=== PATIENT | female | born 1985 | race Caucasian/White ===

== ENCOUNTER 2016-09-23 06:27 | Day surgery (SDC) | payer BC ==
[~2016-09-23 06:27] MED LIST: Lactated Ringers 1,000 ML IV SCH; Lidocaine 1%/Sod Bicarbonate in NS 8.4% 1 ML Syringe IV PRN; Sodium Chloride 0.9% 10 ML Syringe FLUSH PRN
[2016-09-23] MEDS ORDERED: Midazolam 1 MG/ML 2 ML SDV ONE (06:46)
[2016-09-23] MEDS ORDERED: Lidocaine 0.5% 50 ML SDV ONE (06:46)
[2016-09-23] MEDS ORDERED: Sodium Bicarbonate 8.4% 50 MEQ/50 ML SDV ONE (06:46)
[2016-09-23] MEDS ORDERED: Propofol 200 MG/20 ML SDV ONE ×2 (06:46→07:52)
[2016-09-23] MEDS ORDERED: Bupivacaine 0.25% 30 ML SDV ONE (06:57)
[2016-09-23] MEDS ORDERED: Lidocaine 1% 30 ML SDV ONE (06:57)
[2016-09-23] MEDS ORDERED: Alfentanil 500 MCG/ML 2ML Amp ONE (07:09)
--- NOTE | 2016-09-23 07:09 | PCM.PREANE ---
Preanesthetic Assessment - Procedure Proposed Procedure: Bilateral Carpel Tunnel Release - Anesthesia/Transfusion/Family Hx Anesthesia History: Prior Anesthesia Without Reaction Family History of Anesthesia Reaction: No - Review of Systems General: No Symptoms Pulmonary: No Symptoms Cardiovascular: No Symptoms Gastrointestinal: No symptoms Neurological: No Symptoms Other: Reports: None - Physical Assessment NPO Status Date: 09/22/16 NPO Status Time: 21:00 O2 Sat by Pulse Oximetry: 97 Respiratory Rate: 17 Vital Signs: Last Vital Signs Temp 37.2 C 09/23/16 06:37 Pulse 86 09/23/16 06:37 Resp 17 09/23/16 06:37 BP 118/77 09/23/16 06:37 Pulse Ox 97 09/23/16 06:37 Height: 1.57 m Weight: 55.883 kg ASA Class: 1 Mental Status: Alert & Oriented x3 Airway Class: Mallampati = 1 Dentition: Reports: Normal Dentition, Marshall(s) Thyro-Mental Finger Breadths: 3 Mouth Opening Finger Breadths: 3 ROM/Head Extension: Full Lungs: Clear to auscultation, Normal respiratory effort Cardiovascular: Regular Rate, Regular Rhythm, No Murmurs - Lab Values: Laboratory Last Values WBC 10.16 K/mm3 (3.98-10.04) H 09/20/16 16:36 RBC 3.87 M/mm3 (3.98-5.22) L 09/20/16 16:36 Hgb 12.3 gm/L (11.2-15.7) 09/20/16 16:36 Hct 36.5 % (34.1-44.9) 09/20/16 16:36 MCV 94.3 fl (79.4-94.8) 09/20/16 16:36 MCH 31.8 pg (25.6-32.2) 09/20/16 16:36 MCHC 33.7 g/dl (32.2-35.5) 09/20/16 16:36 RDW Std Deviation 46.9 fL (36.4-46.3) H 09/20/16 16:36 Plt Count 364 K/mm3 (182-369) 09/20/16 16:36 MPV 9.2 fl (9.4-12.3) L 09/20/16 16:36 Neut % (Auto) 52.0 % (34.0-71.1) 09/20/16 16:36 Lymph % (Auto) 36.8 % (19.3-51.7) 09/20/16 16:36 [place] % (Auto) 8.1 % (4.7-12.5) 09/20/16 16:36 Eos % (Auto) 2.6 (0.7-5.8) 09/20/16 16:36 Baso % (Auto) 0.4 % (0.1-1.2) 09/20/16 16:36 Neut # (Auto) 5.29 K/mm3 (1.56-6.13) 09/20/16 16:36 Lymph # (Auto) 3.74 K/mm3 (1.18-3.74) 09/20/16 16:36 [place] # (Auto) 0.82 K/mm3 (0.24-0.36) H 09/20/16 16:36 Eos # (Auto) 0.26 K/mm3 (0.04-0.36) 09/20/16 16:36 Baso # (Auto) 0.04 K/mm3 (0.01-0.08) 09/20/16 16:36 Sodium 135 mEq/L (136-145) L 09/20/16 16:36 Potassium 3.8 mEq/L (3.5-5.1) 09/20/16 16:36 Chloride 99 mEq/L (98-107) 09/20/16 16:36 Carbon Dioxide 26 mEq/L (21-32) 09/20/16 16:36 Anion Gap 13.8 (5-15) 09/20/16 16:36 BUN 16 mg/dL (7-18) 09/20/16 16:36 Creatinine 0.7 mg/dL (0.55-1.02) 09/20/16 16:36 Est Cr Clr Drug Dosing TNP 09/20/16 16:36 Estimated GFR (MDRD) > 60 mL/min (>60) 09/20/16 16:36 BUN/Creatinine Ratio 22.9 (14-18) H 09/20/16 16:36 Glucose 89 mg/dL (74-106) 09/20/16 16:36 Calcium 8.6 mg/dL (8.5-10.1) 09/20/16 16:36 Urine HCG, Qual Negative (NEGATIVE) 09/23/16 06:34 MRSA (PCR) Negative 09/20/16 16:36 - Allergies Allergies/Adverse Reactions: Allergies Allergy/AdvReac Type Severity Reaction Status Date / Time No Known Allergies Allergy Verified 09/23/16 07:02 - Blood Blood Available: No - Acknowledgements Anesthesia Type Planned: MAC Pt an Appropriate Candidate for the Planned Anesthesia: Yes Alternatives and Risks of Anesthesia Discussed w Pt/Guardian: Yes Pt/Guardian Understands and Agrees with Anesthesia Plan: Yes PreAnesthesia Questionnaire - Past Health History Medical/Surgical History: Denies Medical/Surgical History HEENT History: Reports: Impaired vision - Past Surgical History HEENT Surgical History: Reports: Oral surgery (wisdom teeth) - SUBSTANCE USE Smoking Status *Q: Never Smoker Tobacco Use Within Last Twelve Months: No Second Hand Smoke Exposure: No Days Per Week of Alcohol Use: 0 (endorses rare alcohol use) Recreational Drug Use History: No - HOME MEDS Home Medications: Home Meds Hydrocodone/Acetaminophen [[place] 5-325 Tablet] 1 - 2 each PO Q6H PRN #20 tablet 09/23/16 [Rx] - CURRENT (IN HOUSE) MEDS Current Meds: Current Medications Lactated Ringer's (Ringers, Lactated) 1,000 mls @ 125 mls/hr IV ASDIRECTED BRANDIN Stop: 09/23/16 23:00 Last Admin: 09/23/16 06:47 Dose: 125 mls/hr Lidocaine/Sodium Bicarbonate (Buffered Lidocaine 1% In Ns 8.4%) 0.25 ml IV ONETIME PRN PRN Reason: Prior to IV Start Stop: 09/23/16 18:00 Last Admin: 09/23/16 06:47 Dose: 0.25 ml Sodium Chloride (Saline Flush) 10 ml FLUSH ASDIRECTED PRN PRN Reason: Keep Vein Open Stop: 09/23/16 18:00 Discontinued Medications Lidocaine HCl (Xylocaine-Mpf 0.5%) Confirm Administered Dose 50 ml .ROUTE .STK- MED ONE Stop: 09/23/16 06:47 Midazolam HCl (Versed 1 Mg/Ml) Confirm Administered Dose 2 mg .ROUTE .STK-MED ONE Stop: 09/23/16 06:47 Propofol (Diprivan 20 Ml) Confirm Administered Dose 200 mg .ROUTE .STK-MED ONE Stop: 09/23/16 06:47 Sodium Bicarbonate (Sodium Bicarbonate 8.4%) Confirm Administered Dose 50 meq .ROUTE .STK-MED ONE Stop: 09/23/16 06:47 Preanesthetic Assessment - PHYSICAL ASSESSMENT O2 Sat by Pulse Oximetry: 97 RR: 17 Vital Signs: Last Vital Signs Temp 37.2 C 09/23/16 06:37 Pulse 86 09/23/16 06:37 Resp 17 09/23/16 06:37 BP 118/77 09/23/16 06:37 Pulse Ox 97 09/23/16 06:37 NPO Status Date: 09/22/16 NPO Status Time: 21:00 - LAB Values: Laboratory Last Values WBC 10.16 K/mm3 (3.98-10.04) H 09/20/16 16:36 RBC 3.87 M/mm3 (3.98-5.22) L 09/20/16 16:36 Hgb 12.3 gm/L (11.2-15.7) 09/20/16 16:36 Hct 36.5 % (34.1-44.9) 09/20/16 16:36 MCV 94.3 fl (79.4-94.8) 09/20/16 16:36 MCH 31.8 pg (25.6-32.2) 09/20/16 16:36 MCHC 33.7 g/dl (32.2-35.5) 09/20/16 16:36 RDW Std Deviation 46.9 fL (36.4-46.3) H 09/20/16 16:36 Plt Count 364 K/mm3 (182-369) 09/20/16 16:36 MPV 9.2 fl (9.4-12.3) L 09/20/16 16:36 Neut % (Auto) 52.0 % (34.0-71.1) 09/20/16 16:36 Lymph % (Auto) 36.8 % (19.3-51.7) 09/20/16 16:36 [place] % (Auto) 8.1 % (4.7-12.5) 09/20/16 16:36 Eos % (Auto) 2.6 (0.7-5.8) 09/20/16 16:36 Baso % (Auto) 0.4 % (0.1-1.2) 09/20/16 16:36 Neut # (Auto) 5.29 K/mm3 (1.56-6.13) 09/20/16 16:36 Lymph # (Auto) 3.74 K/mm3 (1.18-3.74) 09/20/16 16:36 [place] # (Auto) 0.82 K/mm3 (0.24-0.36) H 09/20/16 16:36 Eos # (Auto) 0.26 K/mm3 (0.04-0.36) 09/20/16 16:36 Baso # (Auto) 0.04 K/mm3 (0.01-0.08) 09/20/16 16:36 Sodium 135 mEq/L (136-145) L 09/20/16 16:36 Potassium 3.8 mEq/L (3.5-5.1) 09/20/16 16:36 Chloride 99 mEq/L (98-107) 09/20/16 16:36 Carbon Dioxide 26 mEq/L (21-32) 09/20/16 16:36 Anion Gap 13.8 (5-15) 09/20/16 16:36 BUN 16 mg/dL (7-18) 09/20/16 16:36 Creatinine 0.7 mg/dL (0.55-1.02) 09/20/16 16:36 Est Cr Clr Drug Dosing TNP 09/20/16 16:36 Estimated GFR (MDRD) > 60 mL/min (>60) 09/20/16 16:36 BUN/Creatinine Ratio 22.9 (14-18) H 09/20/16 16:36 Glucose 89 mg/dL (74-106) 09/20/16 16:36 Calcium 8.6 mg/dL (8.5-10.1) 09/20/16 16:36 Urine HCG, Qual Negative (NEGATIVE) 09/23/16 06:34 MRSA (PCR) Negative 09/20/16 16:36 - ALLERGIES Allergies/Adverse Reactions: Allergies Allergy/AdvReac Type Severity Reaction Status Date / Time No Known Allergies Allergy Verified 09/23/16 07:02
[2016-09-23] MEDS ORDERED: Lactated Ringers 1,000 ML ONE (07:55)
--- NOTE | 2016-09-23 08:20 | PCM48HPAN ---
Post Anesthesia Note - EVALUATION WITHIN 48HRS OF ANESTHETIC Vital Signs in Normal Range: Yes Patient Participated in Evaluation: Yes Respiratory Function Stable: Yes Airway Patent: Yes Cardiovascular Function Stable: Yes Hydration Status Stable: Yes Pain Control Satisfactory: Yes Nausea and Vomiting Control Satisfactory: Yes Mental Status Recovered: Yes
--- NOTE | 2016-09-23 08:23 | PCM.OPNOTE ---
- General Post-Op/Procedure Note Date of Surgery/Procedure: 09/23/16 Operative Procedure(s): bilateral carpal tunnel release Pre Op Diagnosis: bilateral median nerve compression neuropathy Post-Op Diagnosis: Same Anesthesia Technique: Local, MAC Primary Surgeon: Mk Castillo Anesthesia Provider: Efren Mazariegos Vp Digital Marketing: Eugenia Dorsey EBL in mLs: 5 Complications: None Condition: Good
[2016-09-23 08:29] VITALS: BP 141/70
--- NOTE | 2016-09-23 12:31 | OR ---
DATE OF OPERATION: 09/23/2016 SURGEON: Mk Castillo MD OPERATION PERFORMED: Bilateral carpal tunnel release. PREOPERATIVE DIAGNOSIS: Bilateral median nerve compression neuropathy. POSTOPERATIVE DIAGNOSIS: Bilateral median nerve compression neuropathy. ANESTHESIA: Local MAC. ANESTHESIA PROVIDER: Efren Mazariegos MD COLLECTION TEAM LEAD: Eugenia Dorsey PA-C ESTIMATED BLOOD LOSS: Less than 5 mL. COMPLICATIONS: None. CONDITION: Stable. DESCRIPTION OF PROCEDURE: The patient was identified in the preop holding area. Proper site was marked and identified by the surgeon. The patient was taken back to the operating theater, where after adequate anesthesia, the patient's bilateral upper extremities were sterilely prepped and draped in the usual sterile fashion. OR- wide time-out was performed. The patient did not receive antibiotics as it was not indicated for soft tissue hand procedure. At this time, starting with the left upper extremity, an Esmarch was used for a tourniquet on the forearm and the incisional area using [place] cardinal line and ulnar border of the fourth digit was drawn out. Local anesthesia with 1% lidocaine without epinephrine and 0.25% Marcaine without epinephrine was anesthetized at the incisional site and at the palmar cutaneous branch of the median nerve. At this time, an incision was made. Blunt dissection was taken down the palmar cutaneous fascia. The palmar cutaneous fascia was then incised and a small rent was made in the transverse carpal ligament. A [place] elevator was then placed distally, and the transverse carpal ligament was released all the way distally stopping before the palmar arch. At this time, using a tenotomy scissors proximally making sure to keep the tips ulnar, the transverse carpal ligament of the forearm fascia was then released proximally. It was found to be adequately released both proximally and distally. Adequate saline was irrigated through the wound. 4-0 nylon simple suture was used for closure of the skin. A sterile soft dressing was applied. The patient then had attention turned to the right upper extremity. Again, Esmarch was used for forearm tourniquet. Incision was used using the same landmarks. Blunt dissection was taken down the palmar cutaneous fascia. The palmar cutaneous fascia was incised. A small rent was made in the transverse carpal ligament. A [place] elevator was again placed distally, and the transverse carpal ligament was released all the way distally. Using tenotomy scissors, the forearm fascia as well as transverse carpal ligament was released proximally and was found to be adequately released both proximally and distally. Adequate saline was irrigated through the wound and simple suture was used for closure of the skin. The patient tolerated the procedure well and was sent to PACU in stable condition. PHUC /[id number]
== END 2016-09-23 08:45 | disposition home or self-care (01) ==
LOC: JD.SDS 06:27
PROVIDERS: ATTEND Orthopaedic Surgery
DX: G56.13 Other lesions of median nerve, bilateral upper limbs (principal); Z98.890 Other specified postprocedural states
CPT/HCPCS: 36415; 64721; 80048; 81025; 85025; 87641; J2250; J7120; 01810; J2704; J3490